=== PATIENT | female | born 1965 | race Caucasian/White ===

== ENCOUNTER 2017-07-18 18:34 | Emergency (ER) | payer BC ==
[2017-07-18 18:51] VITALS: BP 159/84; BMI 30.7
--- NOTE | 2017-07-18 20:43 | DR.GENAD ---
HPI - PCP Primary Care Physician: GURWINDER - Complaint/Symptoms Chief Complaint Doctors Comments: Patient admits to stomach pain for a year now and today decided to get it looked at. She has epigastric and LUQ pain. She denies fever, vomiting or diarrhea. She admits to frequent nausea. Chief Complaint:: PT THINKS SHE HAS GALLBLADDER PORBLEMS. C/O PAIN IN ULQ. PT HAS BEEN HAVING PAIN ALL WEEK. PAIN HAS BEEN CONTINUOUS TODAY. PT ALSO C/O NAUSEA AND CHILLS TODAY. - Source History Provided: Patient - Mode of Arrival Mode of Arrival: Ambulatory - Timing Onset of Chief Complaint: 07/18/17 PMH - PMH Past Medical History: Yes Past Medical History: Anxiety, GERD, Hypertension Past Surgical History: Yes Surgical History: [employer] Surgery - Family History History of Family Medical Conditions: Yes Family Medical History: Cancer - Social History Does patient currently use any type of tobacco product: No Have you used tobacco products in the last 12 months: No Type of Tobacco Use: None Does any household member use tobacco: No Alcohol Use: None Do you use any recreational Drugs:: No Lives With: Spouse Lives Where: Home - infectious screening In the last 2 months have you had wt loss of >10#?: NO Have you had fever, night sweats or hemotysis?: No Have you traveled outside the country in the last 6 months?: No Isolation: Standard ROS - Review of Systems Constitutional: Diaphoresis ENTM: No Symptoms Reported Respiratoy: No Symptoms Reported Cardiovascular: No Symptoms Reported Gastrointestinal/Abdominal: Abdominal Pain Genitourinary: No Symptoms Reported Neurological: No Symptoms Reported Musculoskeletal: No Symptoms Reported Integumentary: No Symptoms Reported Hematologic/Lymphatic: No Symptoms Reported Endocrine: No Symptoms Reported Psychiatric: No Symptoms Reported All Other Systems: Reviewed and Negative PE - Vital Signs Vitals: Temperature 98.8 F Pulse Rate 67 Respiratory Rate 20 Blood Pressure 159/84 O2 Sat by Pulse Oximetry 97 - General Limitations: No Limitations General Appearance: Alert, In No Apparent Distress - Head Head Exam: Normal Inspection, Atraumatic - Eyes Eye exam: Normal Appearance, PERRL, EOMI - ENT ENT Exam: Normal Exam External Ear Exam: Normal External Inspection TM/Canal Exam: Bilateral Normal Nose Exam: Normal Nose Exam Mouth Exam: Normal Inspection Throat Exam: Normal Inspection - Neck Neck Exam: Normal Inspection - Chest Chest Inspection: Normal Inspection - Respiratory Respiratory Exam: Normal Lung Sounds Bilat Respiratory Exam: Bilateral Clear to Auscultation - Cardiovascular Cardiovascular Exam: Regular Rate, Normal Rhythm - Abdominal Exam Abdominal Exam: Normal Inspection Abdominal Tenderness: LUQ, Epigastrium - Extremities Extremities Exam: Normal Inspection, Full ROM - Back Back Exam: Normal Inspection - Neurologic Neurological Exam: Alert, Oriented X3, CN II-XII Intact - Psychiatric Psychiatric Exam: Normal Affect, Normal Mood ROR - Labs Reviewed Result Diagrams: 07/18/17 21:23 07/18/17 21:23 Laboratory: WBC 3.8 X10^3/uL (3.6-10.0) 07/18/17 21: RBC 4.70 X10^6/uL (3.5-5.4) 07/18/17 21: Hgb 11.8 g/dL (12.0-16.0) L 07/18/17 21: Hct 35.1 % (36.0-47.0) L 07/18/17 21: MCV 74.8 fL (80.0-100.0) L 07/18/17 21: MCH 25.1 pg (27.0-34.0) L 07/18/17 21: MCHC 33.5 g/dL (33.0-35.0) 07/18/17 21: RDW 13.7 % (11.6-16.5) 07/18/17 21: Plt Count 96 X10^3/uL (150.0-450.0) L 07/18/17 21: Plt Count Comment Decreased (ADEQUATE) A 07/18/17: MPV 9.7 fL (7.4-11.0) 07/18/17 21: Neut % 56.8 % (42.0-75.0) 07/18/17 21: Lymph % 34.7 % (21.0-51.0) 07/18/17 21: [place] % 6.6 % (0.0-13.0) 07/18/17 21: Eos % 1.5 % (0.9-2.9) 07/18/17 21: Baso % 0.4 % (0.2-1.0) 07/18/17 21: Neut # 2.1 x10^3/uL (2.2-4.8) L 07/18/17 21:23 Lymph # 1.3 X10^3/uL (1.3-2.9) 07/18/17 21:23 [place] # 0.3 x10^3/uL (0.3-0.8) 07/18/17 21:23 Eos # 0.1 x10^3/uL (0.0-0.2) 07/18/17 21:23 Baso # 0.0 X10^3/uL (0.0-0.1) 07/18/17 21:23 Absolute Nucleated RBC 0.1 /100WBC 07/18/17 21:23 Giant Platelets Few 07/18/17 21:23 Plt Morphology Comment Abnormal (NORMAL) A 07/18/17 21:23 RBC Morphology Abnormal (NORMAL) A 07/18/17 21:23 Anisocytosis Slight A 07/18/17 21:23 Sodium 141 mmol/L (136-145) 07/18/17 21:23 Corrected Sodium TNP 07/18/17 21:23 Potassium 3.8 mmol/L (3.5-5.1) 07/18/17 21:23 Chloride 104 mmol/L (98-107) 07/18/17 21:23 Carbon Dioxide 27.8 mmol/L (21-32) 07/18/17 21:23 BUN 17 mg/dL (7-18) 07/18/17 21:23 Creatinine 0.85 mg/dL (0.55-1.02) 07/18/17 21:23 Est GFR (MDRD) Af Amer > 60 (>60) 07/18/17 21:23 Est GFR (MDRD) Non-Af > 60 (>60) 07/18/17 21:23 Glucose 97 mg/dL (65-99) 07/18/17 21:23 Calcium 9.1 mg/dL (8.5-10.1) 07/18/17 21:23 Corrected Calcium TNP 07/18/17 21:23 Total Bilirubin 0.40 mg/dL (0.2-1.0) 07/18/17 21:23 AST 213 Units/L (15-37) H 07/18/17 21:23 ALT 185 Units/L (12-78) H 07/18/17 21:23 Alkaline Phosphatase 170 Units/L (46-116) H 07/18/17 21:23 C-Reactive Protein 5.60 mg/L (0-3.0) H 07/18/17 21:23 Total Protein 7.2 g/dL (6.4-8.2) 07/18/17 21:23 Albumin 3.6 g/dL (3.4-5.0) 07/18/17 21:23 Globulin 3.6 g/dL (2.5-4.5) 07/18/17 21:23 Albumin/Globulin Ratio 1.0 Ratio (1.1-2.1) L 07/18/17 21:23 Amylase 32 Units/L (25-115) 07/18/17 21:23 Lipase 119 Units/L (73-393) 07/18/17 21:23 Specimen Type Clean catch urine 07/18/17 22:25 Urine Color Yellow (YELLOW) 07/18/17 22:25 Urine Appearance Clear (CLEAR) 07/18/17 22:25 Urine pH 5.0 (5.0 - 8.0) 07/18/17 22:25 Ur Specific [place] 1.015 (1.000-1.030) 07/18/17 22:25 Urine Protein Negative (NEGATIVE) 07/18/17 22:25 Urine Glucose (UA) Negative (NEGATIVE) 07/18/17 22:25 Urine Ketones Negative (NEGATIVE) 07/18/17 22:25 Urine Occult Blood 1+ (NEGATIVE) 07/18/17 22:25 Urine Nitrite Negative (NEGATIVE) 07/18/17 22:25 Urine Bilirubin Negative (NEGATIVE) 07/18/17 22:25 Urine Urobilinogen Normal (NORMAL) 07/18/17 22:25 Ur Leukocyte Esterase 1+ (NEGATIVE) 07/18/17 22:25 Urine RBC 0-3 /HPF (NEGATIVE) 07/18/17 22:25 Urine WBC 0-3 /HPF (NEGATIVE) 07/18/17 22:25 Ur Squamous Epith Cells Few /HPF (NEGATIVE) 07/18/17 22:25 Urine Bacteria Negative /HPF (NEGATIVE) 07/18/17 22:25 Ur Culture Indicated? No/not indicated 07/18/17 22:25 H. pylori IgG Antibody Negative (NEGATIVE) 07/18/17 21:23 - Diagnosis Discharge Problem: Splenic calcification Cholelithiasis Qualifiers: Cholelithiasis location: gallbladder Cholecystitis presence: without cholecystitis Biliary obstruction: without biliary obstruction Qualified Code(s) : K80.20 - Calculus of gallbladder without cholecystitis without obstruction - Discharge Plan Condition: Stable - Follow ups/Referrals Follow ups/Referrals: Ryan Main [Primary Care Provider] - 3 days - Instructions
[2017-07-18 21:35] LABS: BASOPHILS % (AUTO) 0.4 % (0.2-1.0); EOSINOPHILS # (AUTO) 0.1 x10^3/uL (0.0-0.2); EOSINOPHILS % (AUTO) 1.5 % (0.9-2.9); HEMATOCRIT 35.1 % (36.0-47.0); HEMOGLOBIN 11.8 g/dL (12.0-16.0); LYMPHOCYTES # (AUTO) 1.3 X10^3/uL (1.3-2.9); LYMPHOCYTES % (AUTO) 34.7 % (21.0-51.0); MEAN CORPUSCULAR HEMOGLOBIN 25.1 pg (27.0-34.0); MEAN CORPUSCULAR HGB CONC 33.5 g/dL (33.0-35.0); MEAN CORPUSCULAR VOLUME 74.8 fL (80.0-100.0); MEAN PLATELET VOLUME 9.7 fL (7.4-11.0); MONOCYTES # (AUTO) 0.3 x10^3/uL (0.3-0.8); MONOCYTES % (AUTO) 6.6 % (0.0-13.0); NEUTROPHILS # (AUTO) 2.1 x10^3/uL (2.2-4.8); NEUTROPHILS % (AUTO) 56.8 % (42.0-75.0); PLATELET COUNT 96 X10^3/uL (150.0-450.0); RED CELL DISTRIBUTION WIDTH 13.7 % (11.6-16.5); WHITE BLOOD COUNT 3.8 X10^3/uL (3.6-10.0)
[2017-07-18 21:41] LABS: GIANT PLATELET FEW
[2017-07-18 21:42] LABS: ANISOCYTOSIS SLIGHT; PLATELET MORPHOLOGY COMMENT ABNORMAL (NORMAL)
[2017-07-18 21:43] LABS: ALANINE AMINOTRANSFERASE 185 Units/L (12-78); ALBUMIN 3.6 g/dL (3.4-5.0); ALKALINE PHOSPHATASE 170 Units/L (46-116); AMYLASE 32 Units/L (25-115); ASPARTATE AMINO TRANSFERASE 213 Units/L (15-37); BLOOD UREA NITROGEN 17 mg/dL (7-18); CALCIUM 9.1 mg/dL (8.5-10.1); CARBON DIOXIDE 27.8 mmol/L (21-32); CHLORIDE 104 mmol/L (98-107); CREATININE 0.85 mg/dL (0.55-1.02); LIPASE 119 Units/L (73-393); SODIUM 141 mmol/L (136-145); TOTAL PROTEIN 7.2 g/dL (6.4-8.2); eGFR BLACK RACES > 60 (>60); eGFR NON BLACK RACES > 60 (>60)
[2017-07-18 22:33] LABS: BILIRUBIN,URINE NEGATIVE (NEGATIVE); BLOOD/HEMOGLOBIN,URINE 1+ (NEGATIVE); GLUCOSE, URINE NEGATIVE (NEGATIVE); KETONES,URINE NEGATIVE (NEGATIVE); LEUKOCYTE ESTERASE ,URINE 1+ (NEGATIVE); NITRITES,URINE NEGATIVE (NEGATIVE); PROTEIN,URINE NEGATIVE (NEGATIVE); UROBILINOGEN,URINE NORMAL (NORMAL)
[2017-07-18 22:48] LABS: APPEARANCE,URINE CLEAR (CLEAR); BACTERIA,URINE NEGATIVE /HPF (NEGATIVE); COLOR,URINE YELLOW (YELLOW); RBC,URINE 0-3 /HPF (NEGATIVE); SQUAMOUS EPITHELIAL CELL,UR FEW /HPF (NEGATIVE)
[2017-07-18] MEDS ORDERED: NS 100 ML IV 100 ML IV ONE (23:21)
--- NOTE | 2017-07-19 00:46 | CT ---
CT abdomen and pelvis with contrast Indication: Chronic left upper quadrant pain Comparison: None Technique: CT images of the abdomen and pelvis were obtained with IV contrast. Automatic exposure con trol was utilized. Findings: No acute skeletal abnormality identified. The lung bases are clear. There is a hypodense lesion within the spleen measuring 1.4 x 1.0 cm, demonstrating some peripheral c alcification. Multiple calcified gallstones are noted, without marked pericholecystic inflammation or gallbladder distention. The liver, stomach, duodenum, pancreas, adrenals, and kidneys are unremarkab le. No significant bowel thickening or dilatation of the lower identified. The uterus is noted. Previ ous tubal ligation changes are seen. The urinary bladder and rectum are unremarkable. No free fluid o r adenopathy identified. Impression: 1. No acute process identified within the abdomen or pelvis. 2. 1.4 cm hypodense splenic lesion is indeterminate, but likely of benign etiology. This can be furth er evaluated with nonemergent MRI with contrast, if indicated. 3. Cholelithiasis Reported By:
== END 2017-07-19 01:10 | disposition home or self-care (01) ==
LOC: ER 18:49
DX: K80.20 Calculus of gallbladder without cholecystitis without obstruction (principal); D73.89 Other diseases of spleen; R10.10 Upper abdominal pain, unspecified
CPT/HCPCS: 36415; 74177; 80053; 81001; 82150; 83690; 85025; 86140; 86677; 96365; 96374; 99283; A4222

== ENCOUNTER → 2017-08-05 | Outpatient (CLI) | payer BC ==
[2017-07-18 18:51] VITALS: BP 159/84
--- NOTE | 2017-08-05 10:44 | MRI ---
MRI OF THE ABDOMEN WITHOUT AND WITH IV CONTRAST Clinical indication: Splenic lesion Procedure: Multiplanar multi sequence MRI of the abdomen were obtained with and without the administr ation of intravenous contrast according to standard departmental protocol. Contrast: 20 cc of Omniscan. Comparisons: CT 07/18/2017 Findings: MRI of the abdomen without contrast: Mild fat deposition in the liver. No significant ascites. MRI of the abdomen with contrast: Liver and spleen are normal in overall appearance. There is a smal l lesion within the splenic hilum measuring approximately 1.4 cm. This does not demonstrate significa nt enhancement and appears to have some internal iron content on inphase imaging. Gallbladder is pres ent. Multiple large gallstones. No definite evidence of gallbladder inflammation. No filling defects within the common bile duct. No ductal dilatation. Pancreas demonstrates normal T1 signal. No pancre atic masses. Adrenal glands are normal. Kidneys demonstrate normal cortical medullary differentiation . No hydronephrosis. Visualized bowel is unremarkable. No suspicious lymph nodes. Impression: 1. Small nodule within the spleen with imaging characteristics most consistent with a siderotic nodul e the can be seen in the setting of prior microhemorrhage. 2. Cholelithiasis without cholecystitis. Reported By:
== END | disposition home or self-care (01) | DRG 816 ==
LOC: RAD 08:15
PROVIDERS: ATTEND Nurse Practitioner Family
DX: D73.89 Other diseases of spleen (principal); R93.5 Abnormal findings on diagnostic imaging of other abdominal regions, including retroperitoneum; K80.80 Other cholelithiasis without obstruction
CPT/HCPCS: 74182